=== PATIENT | female | born 1990 | race Caucasian/White ===

== ENCOUNTER 2016-10-06 19:23 | Emergency (ER) | payer OTHER ==
[~2016-10-06] VITALS: Ht 154.9 cm; Wt 90.7 kg
[~2016-10-06 19:23] MED LIST: NORE1TAB27 PO; SERT50TA PO
[2016-10-06] MEDS ORDERED: IV NORMAL SALINE 1000ML BAG 1,000 ML IV ONE (20:15)
[2016-10-06] MEDS ORDERED: ONDANSETRON PF 4 MG/2 ML VIAL. IV ONE (20:15)
[2016-10-06 20:23] LABS: BASO % 0 % (0-3); EOS % 2 % (0-3); HEMATOCRIT 40.4 % (36.0-47.0); HEMOGLOBIN 13.2 g/dL (12.0-15.5); LYMPH # 2.4 x10^3/uL (1.0-4.8); LYMPH % 18 % (24-48); MEAN CORPUSCULAR HEMOGLOBIN 28 pg (25-35); MEAN CORPUSCULAR HGB CONC 33 g/dL (31-37); MEAN CORPUSCULAR VOLUME 86 fL (79-100); MONO % 6 % (0-9); NEUT % 74 % (31-73); PLATELET COUNT 329 x10^3/uL (140-400); RED BLOOD COUNT 4.72 x10^6/uL (3.50-5.40); RED CELL DISTRIBUTION WIDTH 13.5 % (11.5-14.5); WHITE BLOOD COUNT 13.4 x10^3/uL (4.0-11.0)
[2016-10-06 20:24] LABS: BILIRUBIN,URINE SMALL (NEG); GLUCOSE,URINE NEGATIVE (NEG); NITRITE,URINE NEGATIVE (NEG); PH,URINE 5.5; PROTEIN,URINE 30 mg/dL (NEG-TRACE); UROBILINOGEN,URINE 0.2 mg/dL (0.2 mg/dL)
[2016-10-06 20:35] LABS: BACTERIA,URINE 0 /HPF (0-FEW); RBC,URINE 0 /HPF (0-2); SQUAMOUS EPITHELIAL CELL,UR MOD /LPF; WBC,URINE 0 /HPF (0-4)
[2016-10-06 21:15] LABS: CALCIUM 8.9 mg/dL (8.5-10.1); CREATININE 0.7 mg/dL (0.6-1.0); GFR 102.8; POTASSIUM 3.4 mmol/L (3.5-5.1)
[2016-10-06 21:18] LABS: ALBUMIN 3.2 g/dL (3.4-5.0); ALBUMIN/GLOBULIN RATIO 0.8 (1.0-1.7); TOTAL BILIRUBIN 0.2 mg/dL (0.2-1.0); TOTAL PROTEIN 7.3 g/dL (6.4-8.2)
--- NOTE | 2016-10-06 22:02 | RAD ---
PROCEDURE Right upper quadrant abdominal ultrasound. HISTORY Right upper quadrant pain for 4 days. Patient ate at 1730 hours. TECHNIQUE Transabdominal imaging was performed. COMPARISON None. FINDINGS Visualized pancreas is unremarkable. Visualized aorta and IVC demonstrate normal caliber. Liver is increased in echogenicity. No focal hepatic masses are identified. Gallbladder is almost completely contracted. Common bile duct has normal caliber at 3 millimeters. Right kidney measures 12.5 centimeters in length. Right kidney is without evidence of obstruction or stone. Parenchymal echogenicity of the right kidney appears appropriate. IMPRESSION 1. Echogenic liver, compatible with fatty liver disease. 2. Contracted gallbladder, likely secondary to the patient's nonfasting state. Electronically signed by: Isai Esparza MD (Oct 06, 2016 22:00:45)
--- NOTE | 2016-10-06 22:27 | PHYS DOC ---
Past Medical History Past Medical History: Depression Past Surgical History: No Surgical History Alcohol Use: Occasionally Drug Use: None Adult General Chief Complaint Chief Complaint: ABDOMINAL PAIN HPI HPI Patient is a 26 year old female who presents with abdominal pain. The patient reports 3 day history of RUQ & epigastric pain which worsens with eating. She reports pain acutely worse tonight after eating pasta. Denies fevers/chills, nausea, vomiting, diarrhea, hematochezia, melena, dysuria/hematuria. She denies previous history of similar symptoms. No abdominal surgeries. Has a PCP. Review of Systems Review of Systems Constitutional: Denies fever or chills HENT: Denies nasal congestion or sore throat Respiratory: Denies cough or shortness of breath Cardiovascular: Denies chest pain or edema GI: Reports abdominal pain, denies nausea, vomiting, bloody stools or diarrhea : Denies dysuria or hematuria Musculoskeletal: Denies back pain or joint pain Integument: Denies rash or skin lesions Neurologic: Denies headache Current Medications Current Medications Current Medications Medications (Trade) Dose Ordered Sig/Charo Start Time Stop Time Status Last Admin Dose Admin Ondansetron HCl (Zofran) 4 mg 1X ONCE 10/06/16 20:15 10/06/16 20:17 DC 10/06/16 20:28 4 MG Sodium Chloride (Iv Sodium Chloride 0.9% 1000ml Bag) 1,000 ml @ 1,000 mls/hr 1X ONCE 10/06/16 20:15 10/06/16 21:14 DC 10/06/16 20:28 1,000 MLS/HR Allergies Allergies Allergies Coded Allergies Type Severity Reaction Last Updated Verified No Known Drug Allergies 08/07/13 No Physical Exam Physical Exam Constitutional: obese, no acute distress, non-toxic appearance. HENT: Normocephalic, atraumatic, bilateral external ears normal, oropharynx moist, nose normal. Eyes: conjunctiva normal, no discharge. Neck: supple, no stridor. Cardiovascular: RRR, no murmurs, no edema. Lungs & Thorax: LCTAB, no wheezing, no respiratory distress. Abdomen: normal bowel sounds, soft, RUQ tenderness, mild epigastric & LUQ tenderness, no rebound/guarding, no masses or pulsatile masses, nondistended. Skin: Warm, dry, no erythema, no rash. Back: No CVA tenderness. Extremities: No tenderness, no edema. Neurologic: Alert and oriented X 3, no focal deficits noted. Psychologic: Affect normal, judgement normal, mood normal. Current Patient Data Vital Signs Vital Signs Date Time Temp Pulse Resp B/P Pulse Ox O2 Delivery O2 Flow Rate FiO2 10/06/16 22:33 78 106/59 95 Room Air 10/06/16 20:05 98.1 16 98.1 Lab Values Laboratory Tests Test 10/06/16 19:15 10/06/16 19:20 10/06/16 20:00 10/06/16 20:40 Urine Collection Type Unknown Urine Color [place] Urine Clarity Cloudy Urine pH 5.5 Urine Specific [place] >=1.030 Urine Protein 30mg/dL (NEG-TRACE) Urine Glucose (UA) Negativemg/dL (NEG) Urine Ketones (Stick) Negativemg/dL (NEG) Urine Blood Moderate (NEG) Urine Nitrite Negative (NEG) Urine Bilirubin Small (NEG) Urine Urobilinogen Dipstick 0.2mg/dL (0.2 mg/dL) Urine Leukocyte Esterase Negative (NEG) Urine RBC 0/HPF (0-2) Urine WBC 0/HPF (0-4) Urine Squamous Epithelial Cells Mod/LPF Urine Amorphous Sediment Present/HPF Urine Bacteria 0/HPF (0-FEW) Urine Mucus Mod/LPF POC Urine HCG, Qualitative Hcg negative (Negative) White Blood Count 13.4x10^3/uL (4.0-11.0) H Red Blood Count 4.72x10^6/uL (3.50-5.40) Hemoglobin 13.2g/dL (12.0-15.5) Hematocrit 40.4% (36.0-47.0) Mean Corpuscular Volume 86fL (79-100) Mean Corpuscular Hemoglobin 28pg (25-35) Mean Corpuscular Hemoglobin Concent 33g/dL (31-37) Red Cell Distribution Width 13.5% (11.5-14.5) Platelet Count 329x10^3/uL (140-400) Neutrophils (%) (Auto) 74% (31-73) H Lymphocytes (%) (Auto) 18% (24-48) L Monocytes (%) (Auto) 6% (0-9) Eosinophils (%) (Auto) 2% (0-3) Basophils (%) (Auto) 0% (0-3) Neutrophils # (Auto) 10.0x10^3uL (1.8-7.7) H Lymphocytes # (Auto) 2.4x10^3/uL (1.0-4.8) Monocytes # (Auto) 0.8x10^3/uL (0.0-1.1) Eosinophils # (Auto) 0.2x10^3/uL (0.0-0.7) Basophils # (Auto) 0.0x10^3/uL (0.0-0.2) Sodium Level 140mmol/L (136-145) Potassium Level 3.4mmol/L (3.5-5.1) L Chloride Level 106mmol/L (98-107) Carbon Dioxide Level 28mmol/L (21-32) Anion Gap 6 (6-14) Blood Urea Nitrogen 15mg/dL (7-20) Creatinine 0.7mg/dL (0.6-1.0) Estimated GFR (Cockcroft-Gault) 102.8 BUN/Creatinine Ratio 21 (6-20) H Glucose Level 116mg/dL (70-99) H Calcium Level 8.9mg/dL (8.5-10.1) Total Bilirubin 0.2mg/dL (0.2-1.0) Aspartate Amino Transferase (AST) 17U/L (15-37) Alanine Aminotransferase (ALT) 24U/L (14-59) Alkaline Phosphatase 111U/L (46-116) Total Protein 7.3g/dL (6.4-8.2) Albumin 3.2g/dL (3.4-5.0) L Albumin/Globulin Ratio 0.8 (1.0-1.7) L Lipase 270U/L (73-393) Laboratory Tests 10/06/16 20:00 Laboratory Tests 10/06/16 20:40 EKG EKG [] Radiology/Procedures Radiology/Procedures PROCEDURE: ABDOMEN LTD PROCEDURE Right upper quadrant abdominal ultrasound. HISTORY Right upper quadrant pain for 4 days. Patient ate at 1730 hours. TECHNIQUE Transabdominal imaging was performed. COMPARISON None. FINDINGS Visualized pancreas is unremarkable. Visualized aorta and IVC demonstrate normal caliber. Liver is increased in echogenicity. No focal hepatic masses are identified. Gallbladder is almost completely contracted. Common bile duct has normal caliber at 3 millimeters. Right kidney measures 12.5 centimeters in length. Right kidney is without evidence of obstruction or stone. Parenchymal echogenicity of the right kidney appears appropriate. IMPRESSION 1. Echogenic liver, compatible with fatty liver disease. 2. Contracted gallbladder, likely secondary to the patient's nonfasting state. Electronically signed by: Isai Esparza MD (Oct 06, 2016 22:00:45) DICTATED and SIGNED BY: ISAI ESPARZA MD DATE: 10/06/162199 [] Course & Med Decision Making Course & Med Decision Making Pertinent Labs and Imaging studies reviewed. (See chart for details) The patient presents with abdominal pain. She declined pain medication. Obtained labs, US of RUQ. No acute abnormalities identified. Recommend rest, PO hydration, zantac for possible GERD/gastritis. Follow up with PCP in 2-3 days if not improving. Come back for high fever, severe pain, uncontrolled vomiting, any otherwise worsening condition. Discharged home in stable condition. [] Dragon Disclaimer Dragon Disclaimer This electronic medical record was generated, in whole or in part, using a voice recognition dictation system. Departure Departure Impression: Primary Impression: Abdominal pain Disposition: HOME, SELF-CARE Condition: IMPROVED Referrals: KAYLEE MONDRAGON APRN (PCP) Patient Instructions: Abdominal Pain, [id number] Additional Instructions: You in the emergency department today for abdominal pain. The tests here did not show a serious cause of symptoms. Please rest, drink clear liquids and advance to bland food as tolerated. Try taking zantac for upset stomach. Follow- up with primary care physician in 2-3 days if not improving. Return to the emergency department for high fever, severe pain, uncontrolled vomiting, any otherwise worsening condition. Scripts Ranitidine Hcl (Zantac)150 Mg [id number] Mg PO DAILY #15 TAB Prov:HALEIGH MARIE MD 10/06/16 HALEIGH MARIE MD Oct 06, 2016 22:27
[2016-10-06 22:33] VITALS: BP 106/59
[2016-10-06] MEDS ORDERED: RANI150T6 PO (22:35)
== END 2016-10-06 22:48 | disposition home or self-care (01) ==
LOC: ER 19:23
DX: R10.11 Right upper quadrant pain (principal); R10.13 Epigastric pain; F32.9 Major depressive disorder, single episode, unspecified
CPT/HCPCS: 36415; 76705; 80053; 81001; 81025; 83690; 85027; 96361; 96374; 99285; J2405; J7030

== ENCOUNTER → 2017-11-08 | Outpatient (CLI) | payer OTHER | END | disposition home or self-care (01) | LOC: KCIC CT 10:14 | DX: J32.9 Chronic sinusitis, unspecified (principal) | CPT/HCPCS: 70486 ==